=== PATIENT | female | born 1980 | race Caucasian/White ===

== ENCOUNTER 2023-07-29 20:55 | Emergency (ER) | payer OTHER, SELFPAY ==
[2023-07-29] VITALS (8 sets, daily range): BP systolic 114–150; BP diastolic 62–111; PULSE 90–100; BMI 46.6
[2023-07-29 21:55] LABS: % Basophils 0.3 % (0-2); % Eosinophils 2.8 % (0-6); % Immature Granulocytes 1.1 % (0-0.5); % Lymphocytes 24.7 % (20.5-51.1); % Monocytes 6.4 % (1.7-9.3); % Neutrophils 64.7 % (42.2-75.2); Absolute Eosinophils 0.3 10^3/uL (0-0.7); Absolute Immature Granulocytes 0.1 10^3/uL (0-0.05); Absolute Lymphocytes 2.6 10^3/uL (1.2-3.4); Absolute Monocytes 0.7 10^3/uL (0.1-0.6); Absolute Neutrophils 6.8 10^3/uL (1.4-6.5); Hematocrit 35.6 % (37.0-47.0); Hemoglobin 11.9 g/dL (12.0-16.0); Mean Corp Hgb Conc. 33.4 g/dL (33.0-37.0); Mean Corpuscular Hgb 28.7 pg (27.0-31.0); Mean Corpuscular Volume 85.8 fL (81.0-99.0); Mean Platelet Volume 9.7 fL (7.4-10.4); Nucleated Red Blood Cells % 0 %; Platelet Count 239 10^3/uL (130-400); Red Blood Cell Count 4.15 10^6/uL (4.20-5.40); Red Cell Dist. Width 13.6 % (11.5-14.5); White Blood Cell Count 10.4 10^3/uL (4.8-10.8)
[2023-07-29 22:07] LABS: ALT (SGPT) 21 U/L (0-35); AST (SGOT) 18 U/L (14-36); Albumin 3.6 g/dl (3.5-5.0); Alkaline Phosphatase 68 U/L (38-126); Blood Urea Nitrogen 20 mg/dl (7-17); Calcium 8.2 mg/dl (8.4-10.2); Carbon Dioxide 16 mmol/L (22-30); Chloride 115 mmol/L (98-107); Glucose 124 mg/dl (70-99); Potassium 3.9 mmol/L (3.5-5.1); Sodium 136 mmol/L (135-145); Total Bilirubin 0.2 mg/dl (0.2-1.3); Total Protein 6.3 g/dl (6.3-8.2); eGFR > 60.00
[2023-07-29 22:18] LABS: NT-proBNP 35.1 pg/ml; Troponin I < 0.012 ng/ml
--- NOTE | 2023-07-29 22:37 | ED.GENMED ---
History of Present Illness
<MAURA Rosenbaum - Last Filed: 07/30/23 05:35>
General
Chief Complaint: Breathing Problem
Source: patient
Exam Limitations: none
Time Seen by Provider: 07/29/23 22:18
Travel History
Have you had any contact with someone who has COVID-19?: No
Do you have any symptoms of coronavirus? Fever > 100 degrees, chills, cough, shortness of breath, sore throat, loss of taste or smell, muscle aches, or headache?: Yes
Symptoms:: SOB
History of Present Illness
History of Present Illness:
This is 43 year old female with history bipolar disorder, anxiety, depression, PTSD who presents to the ER w/ c/o of worsening SOB x3-4 weeks. Dyspnea is worse with exertion and positional changes and relived with rest. She has difficulty walking up
the stairs and approximately 50ft before having to stop to take a breath. She reports having difficulty speaking in full sentences and feels that she is wheezing. She admits to chest discomfort that radiates to the back. She also has R arm pain but
denies numbness or tingling. She reports associated chills and fatigue. She denies sharp chest pain, dizziness, headache.
Patient reports she was admitted in patient at the [facility] [address] for bipolar disorder and anxiety exacerbation late June and was switched to outpatient early July. She is currently still being treated at the outpatient clinic. She also admits
having recent stressors in her life including gaining custody of her daughter and being in between housing. She also reports recent weight gain due to the stress. She denies history of asthma, COPD, bronchitis, PE, or CT. She denies smoking tobacco,
drinking alcohol, or any illicit drugs.
Past History
<MAURA Rosenbaum - Last Filed: 07/30/23 05:35>
Past History
ED Past Medical History: Hypothyroidism and Psychiatric (Bipolar disorder anxiety)
ED Past Surgical History: Other (Bunionectomy, tympanostomy tubes)
Social History
Tobacco: Non-smoker
Alcohol: None
Drug: None
Personal: Single
Living: alone
Family History
Family History: Negative Diabetes, Hypertension or CAD
<Alethea Parra MD - Last Filed: 07/30/23 02:25>
Social History
Employment: Other
Review of Systems
<Alethea Parra MD - Last Filed: 07/30/23 02:25>
Review of Systems
Allergies reviewed?: Yes
All Other Systems: ROS reviewed and negative except as documented in HPI and ROS
Constitutional: Reports weight gain and fatigue
EENT: Reports no symptoms
Respiratory: Reports trouble breathing
Cardiac: Reports chest pain
ABD/GI: Reports no symptoms
: Reports no symptoms
Musculoskeletal: Reports no symptoms
Skin: Reports no symptoms
Neurological: Reports no symptoms
Endocrine: Reports no symptoms
Hematologic/Lymphatic: Reports no symptoms
Psychiatric: Reports anxiety (Has stress related to living situation and trying 'to get daughter back' from her sister)
Phy Exam
<Alethea Parra MD - Last Filed: 07/30/23 02:25>
Physical Exam
Physical Exam:
Physical Exam
General: no apparent distress, not acutely ill. Patient appears anxious. At times tachypneic with talking
Neck: supple. no meningeal signs. normal psoterior pharynx
Heart: s1/s2 regular rate and rhythm, no murmur. equal radial pulses.
Lungs: No retracting. At times seems anxious and is hyperventilating and is tachypneic with speaking but then gets calmer and slows down. No wheezing, crackles, or rhonchi
Abdomen: normal bowel sounds. not tender. no CVAT
Neuro: alert and oriented. no focal neurological deficits
Skin: no rash
Psychiatric: well kept. interactive and cooperative
Extremities: no edema. no calf tenderness. negative homans. good distal pulses
Scores
<MAURA Rosenbaum - Last Filed: 07/30/23 05:35>
Heart Failure Risk
Heart Failure Risk Score: Not Applicable
Course
<MAURA Rosenbaum - Last Filed: 07/30/23 05:35>
Orders/Labs/Results
Orders:
Orders
07/29/23 21:04
Electrocardiogram (*1) Urgent
Reason for Study: Shortness of Breath
EKG- Treatment ONCE
07/29/23 21:48
Complete Blood Count/With Diff Urgent
Comprehensive Metabolic Panel Urgent
Pro-BNP [NT-proBNP] Urgent
Troponin I Urgent
07/29/23 23:05
Add On- LAB Urgent
Tests Added?: TSH
07/29/23 23:[address] Non Medication Order As Directed
Physician Order: walking pulse ox
Above order entered?: Yes
07/29/23 23:15
COVID-19 Antigen Urgent
Source: Nasal Swab
Carbon Dioxide Urgent
D-Dimer Urgent
TSH Urgent
Comment: ADD ON
07/29/23 23:46
0.9% Sodium Chloride 1000 ml [Nss] 1,000 ml IV BOLUS
07/30/23 00:13
CR Chest - 2 Views Urgent
Comment:
Reason For Exam: SOB
07/30/23 00:22
Venous Blood Gas Urgent
%Oxygen/Room Air: RA
07/30/23 01:54
Doxycycline [Vibramycin] 100 mg PO NOW STA
Ipratropium/Albuterol Sulfate [Duoneb] 3 ml INH R NOW ONE
Abnormal Lab Results
07/29/23 07/29/23 07/30/23
21:48 23:15 00:22
RBC 4.15 L 10^6/uL
(4.20-5.40)
Hgb 11.9 L g/dL
(12.0-16.0)
Hct 35.6 L %
(37.0-47.0)
Abs Immat Gran (auto) 0.1 H 10^3/uL
(0-0.05)
Absolute Neuts (auto) 6.8 H 10^3/uL
(1.4-6.5)
Absolute Monos (auto) 0.7 H 10^3/uL
(0.1-0.6)
Immature Gran % 1.1 H %
(0-0.5)
VBG pCO2 29 L mmHg
(35-48)
VBG pO2 175 H mmHg
(30-50)
VBG HCO3 15.6 L mmol/L
(22-27)
Chloride 115 H mmol/L
(98-107)
Carbon Dioxide 16 L mmol/L 15 L mmol/L
(22-30) (22-30)
BUN 20 H mg/dl
(7-17)
Glucose 124 H mg/dl
(70-99)
Calcium 8.2 L mg/dl
(8.4-10.2)
TSH 10.20 H uIU/ml
(0.47-4.68)
07/29/23 21:48
07/29/23 23:15
Vital Signs
Initial and Last Documented VS:
Initial Vital Signs
Temp Pulse Resp BP Pulse Ox
98.9 F 100 18 150/82 96
07/29/23 20:59 07/29/23 20:59 07/29/23 20:59 07/29/23 20:59 07/29/23 20:59
Last Documented Vital Signs
Temp Pulse Resp BP Pulse Ox
98.9 F 86 17 130/72 94
07/29/23 20:59 07/30/23 02:30 07/30/23 02:32 07/30/23 02:32 07/30/23 02:45
<Alethea Parra MD - Last Filed: 07/30/23 02:25>
Orders/Labs/Results
Orders:
Orders
07/29/23 21:04
Electrocardiogram (*1) Urgent
Reason for Study: Shortness of Breath
EKG- Treatment ONCE
07/29/23 21:48
Complete Blood Count/With Diff Urgent
Comprehensive Metabolic Panel Urgent
Pro-BNP [NT-proBNP] Urgent
Troponin I Urgent
07/29/23 23:05
Add On- LAB Urgent
Tests Added?: TSH
07/29/23 23:[address] Non Medication Order As Directed
Physician Order: walking pulse ox
Above order entered?: Yes
07/29/23 23:15
COVID-19 Antigen Urgent
Source: Nasal Swab
Carbon Dioxide Urgent
D-Dimer Urgent
TSH Urgent
Comment: ADD ON
07/29/23 23:46
0.9% Sodium Chloride 1000 ml [Nss] 1,000 ml IV BOLUS
07/30/23 00:13
CR Chest - 2 Views Urgent
Comment:
Reason For Exam: SOB
07/30/23 00:22
Venous Blood Gas Urgent
%Oxygen/Room Air: RA
07/30/23 01:54
Doxycycline [Vibramycin] 100 mg PO NOW STA
Ipratropium/Albuterol Sulfate [Duoneb] 3 ml INH R NOW ONE
Abnormal Lab Results
07/29/23 07/29/23 07/30/23
21:48 23:15 00:22
RBC 4.15 L 10^6/uL
(4.20-5.40)
Hgb 11.9 L g/dL
(12.0-16.0)
Hct 35.6 L %
(37.0-47.0)
Abs Immat Gran (auto) 0.1 H 10^3/uL
(0-0.05)
Absolute Neuts (auto) 6.8 H 10^3/uL
(1.4-6.5)
Absolute Monos (auto) 0.7 H 10^3/uL
(0.1-0.6)
Immature Gran % 1.1 H %
(0-0.5)
VBG pCO2 29 L mmHg
(35-48)
VBG pO2 175 H mmHg
(30-50)
VBG HCO3 15.6 L mmol/L
(22-27)
Chloride 115 H mmol/L
(98-107)
Carbon Dioxide 16 L mmol/L 15 L mmol/L
(22-30) (22-30)
BUN 20 H mg/dl
(7-17)
Glucose 124 H mg/dl
(70-99)
Calcium 8.2 L mg/dl
(8.4-10.2)
TSH 10.20 H uIU/ml
(0.47-4.68)
07/29/23 21:48
07/29/23 23:15
Vital Signs
Initial and Last Documented VS:
Initial Vital Signs
Temp Pulse Resp BP Pulse Ox
98.9 F 100 18 150/82 96
07/29/23 20:59 07/29/23 20:59 07/29/23 20:59 07/29/23 20:59 07/29/23 20:59
Last Documented Vital Signs
Temp Pulse Resp BP Pulse Ox
98.9 F 86 17 130/72 94
07/29/23 20:59 07/30/23 02:30 07/30/23 02:32 07/30/23 02:32 07/30/23 02:45
<Alethea Parra MD - Last Filed: 07/30/23 02:25>
MDM/Problems Addressed
Differential Diagnosis Includes:
Acute anxiety, hyperthyroidism, PE, pneumonia
MDM/Problems Addressed:
Patient presents with acute shortness of breath and fatigue
Chronic conditions affecting care: Psychiatric illness (Patient with history of psychiatric illness and under a lot of stress currently)
Acute Exacerbation and/or Progression of Chronic Illness:
Patient may have acute on chronic anxiety
<Alethea Parra MD - Last Filed: 07/30/23 02:25>
*Radiology
Radiology exam reviewed: preliminary read by ED provider (Possible left lower lobe infiltrate.)
*Pulse Oximetry
Patient hypoxic: no
*EKG
Interpreted by ED Provider?: Yes
Interpretation: normal
Comparison EKG: no changes
Rate: normal
Rhythm: sinus
[place]: normal axis
QRS Pattern: normal QRS
Ischemia: no ischemia
*Commercial Credit Analyst Interpretation
Rate: normal
Interpretation: normal
Rhythm: sinus
*Critical Care Note
Total Time (30-74mins, 75-104mins- exclusive of procedures): Not Applicable
Data Reviewed
Review of Other/Old Records Reveals: Discharge Summary (Discharge summary reviewed from 05/2016 when patient was admitted for concussion)
Source: patient
<Alethea Parra MD - Last Filed: 07/30/23 02:25>
Patient Management
Social determinants of health affecting care: Living situation and Strong social support
Escalation/DeEscalation of care consider admission/obs:
Patient remains nontoxic-appearing. Her walking pulse ox was 97% on room air. She appears well-perfused. It is doubtful she is acute coronary syndrome given that her EKG is normal and her troponin is negative. In addition, she denies pleuritic
chest pain and her D-dimer is normal, therefore, it is unlikely she has a PE. She is not a smoker and does not take oral contraceptive pills so she is not high risk for PE. Patient does have a metabolic acidosis and respiratory alkalosis on her
venous blood gas. This was reviewed by the hospitalist as well. Hospitalist and I felt this was likely chronic and compensated, as her pH is normal. She does not have an anion gap. Patient will be encouraged to follow-up with her primary care
doctor who can consider sending her to a fryer operator for this. I explained this to the patient and she reports that she will make sure to have follow-up with her primary care doctor within 1 to 2 weeks. I do not hear any wheezing, however,
patient reports that she herself feels herself wheeze and is requesting a breathing treatment as well as a rescue inhaler prescription.
ED Attending Note
<MAURA Rosenbaum - Last Filed: 07/30/23 05:35>
-
Portions of this chart may have been created with voice recognition software.� Occasional wrong word or��sound alike� substitutions may have occurred due to the inherent limitations of voice recognition software.
Discharge Plan
Departure
Patient Disposition: Home (Routine Discharge)
Date of Disposition: 07/30/23
Time of Disposition: 02:20
Patient with high blood pressure during this ER visit?: No
Condition: Good
Covid-19: Negative COVID-19
Discharge Problem:
Acute dyspnea, Acid-base disorder, mixed, Metabolic acidosis with respiratory alkalosis, Pneumonia, Hypothyroidism
Instructions: Shortness of Breath (Dyspnea) (DC), Hypothyroidism (Underactive Thyroid) (DC), Pneumonia, Adult ED
Prescriptions:
New
albuterol sulfate [ProAir HFA] 90 mcg/actuation HFA aerosol inhaler
1 puff inhalation Q4HPRN PRN (Reason: shortness of breath) Qty: 8.5 0RF
doxycycline hyclate 100 mg capsule
100 mg PO BID Qty: 13 0RF
No Action
lurasidone [Latuda] 40 MG tablet
40 mg PO DAILY
brexpiprazole [Rexulti] 1 MG tablet
1 mg PO DAILY
aripiprazole 10 MG tablet
5 mg PO HS Qty: 30 0RF
tramadol-acetaminophen 1 EACH tablet
1 ea PO Q8HPRN PRN (Reason: pain) Qty: 0 0RF
Referrals:
Marlene Batres MD [Primary Care Provider] -
Activity Restrictions/Additional Instructions:
It is very important that you follow-up with your primary care doctor as soon as possible. Your thyroid is underactive so your thyroid medication will likely need to be adjusted by your doctor. This could be contributing to feeling tired. In
addition, your carbon dioxide levels are low in your blood work, so please review your blood work with your primary care doctor because your doctor will likely refer you to see a fryer operator/kidney doctor for this.
Interventions
Interventions:
*Risk Screen - Suicide Last Done: 07/29/23 21:02
*General Assessment Last Done: 07/29/23 21:02
*Neglect/Abuse Screening Last Done: 07/29/23 21:02
ED- Fall Risk Assessment Last Done: 07/29/23 21:55
*ED COVID-19 Vaccine History Last Done: 07/30/23 00:57
*Nursing Disposition Last Done: 07/30/23 03:13
ED- Cardiac Assessment Last Done: 07/29/23 21:55
ED- Pulmonary Assessment Last Done: 07/29/23 21:55
Discharge Date and Time
Discharge Date/Time: 07/30/23 03:14
Print Language: TELUGU
[2023-07-29 23:36] LABS: COVID-19 Antigen Negative (Negative)
[2023-07-29 23:37] LABS: Carbon Dioxide 15 mmol/L (22-30)
[2023-07-29] MEDS: NSS 1000 IV (23:54)
[2023-07-30 00:12] LABS: D-Dimer < 0.27 ug/mlFEU (0.00-0.50)
[2023-07-30 00:28] LABS: Venous Blood Gas HCO3 15.6 mmol/L (22-27); Venous Blood Gas O2 Sat % 99.9 %; Venous Blood Gas pCO2 29 mmHg (35-48); Venous Blood Gas pH 7.34 (7.32-7.43); Venous Blood Gas pO2 175 mmHg (30-50)
[2023-07-30 00:31] LABS: Venous Blood Gas O2 Therapy ROOM AIR
[2023-07-30 01:03] VITALS: BP 94/55
[2023-07-30 01:33] VITALS: BP 133/68
[2023-07-30 02:01] VITALS: BP 112/71
[2023-07-30] MEDS: VIBRAMYCIN 100 MG PO (02:06)
[2023-07-30] MEDS: DUONEB 3 ML INH (02:08)
[2023-07-30 02:32] VITALS: BP 130/72
== END 2023-07-30 03:14 | disposition home or self-care (01) ==
LOC: EMR 20:55
PROVIDERS: Emergency Medicine; EMERGENCY PHYSICIAN Emergency Medicine; PRIMARYCARE PHYSICIAN Family Medicine
DX: E87.4 Mixed disorder of acid-base balance (principal); E03.9 Hypothyroidism, unspecified; E87.8 Other disorders of electrolyte and fluid balance, not elsewhere classified; J18.9 Pneumonia, unspecified organism; R06.00 Dyspnea, unspecified; M79.601 Pain in right arm; Z11.52 Encounter for screening for COVID-19; F31.9 Bipolar disorder, unspecified; F41.9 Anxiety disorder, unspecified; F32.A Depression, unspecified; F43.10 Post-traumatic stress disorder, unspecified; Z88.8 Allergy status to other drugs, medicaments and biological substances; Z88.6 Allergy status to analgesic agent; Z88.1 Allergy status to other antibiotic agents; Z91.041 Radiographic dye allergy status
CPT/HCPCS: 99284; 94640; 71046; 80053; 82374; 82805; 83880; 84443; 84484; 85025; 85379; 87811; 93005